=== PATIENT | female | born 1995 ===

== ENCOUNTER → 2021-01-29 | Outpatient (REF) | payer OTHER | LOC: M WUC 12:10 | PROVIDERS: ATTEND Physician Assistant | DX: N39.0 Urinary tract infection, site not specified (principal) ==

== ENCOUNTER → 2021-06-15 | Outpatient (REF) | payer OTHER | LOC: M LAB REF 09:58 | PROVIDERS: ATTEND Physician Assistant | DX: N39.0 Urinary tract infection, site not specified (principal) ==

== ENCOUNTER → 2021-06-17 | Outpatient (REF) | payer OTHER | LOC: M LAB REF 20:08 | PROVIDERS: ATTEND Nurse Practitioner Family | DX: J02.9 Acute pharyngitis, unspecified (principal) ==